=== PATIENT | male | born 2005 | race Two or more races ===

== ENCOUNTER 2024-10-06 19:03 | Emergency (ER) | payer MEDICAID, SELFPAY ==
[2024-10-06] VITALS (9 sets, daily range): BP systolic 122–162; BP diastolic 74–114; PULSE 53–96; RESP 15–20; TEMP 36.7–36.9; O2SAT 92–100; BMI 23.6
--- NOTE | 2024-10-06 19:09 | EKG_ITS ---
[facility] Test Date: 2024-10-06 Pat Name: RAE JACINTO Department: Room: - Gender: Male Junior Architect: : 2005 Requested By: Jaimie Schaefer Order Number: [id number] Reading MD: Jaimie Schaefer Measurements Intervals [place] Rate: 79 P: 63 VA: 150 QRS: 38 QRSD: 110 T: 57 QT: 365 QTc: 420 Interpretive Statements SINUS RHYTHM EARLY REPOLARIZATION [ST ELEVATION WITH NORMALLY INFLECTED T WAVE] No previous ECG available for comparison /store/S0/[id number]/ecg/[id number].pdf
--- NOTE | 2024-10-06 19:13 | PD.EDOVER ---
ED Overdose RME/HPI General Chief Complaint: Overdose Stated Complaint: OD Time Seen by Provider: 10/06/24 19:05 Arrival date/time: 10/06/24 19:03 RME / HPI RME / HPI Narrative: 19-year-old male patient with significant history of suicidal ideation in the past, schizophrenia, was brought in by EMS for evaluation regarding overdose on medication for suicidal attempt. Apparently patient was having an argument with her girlfriend, broke up with her girlfriend, and patient decided to hurt himself by drinking a bottle of ibuprofen, a bottle of aspirin, and Flagyl 12 tablets 500 mg. Incident happened during the daylight patient does not really remember what time. When the parents arrived, patient was noted to be less responsive and was vomiting. Patient complained of epigastric pain. Patient attempted suicide in the past. Related Data Previous Rx's ?Medication ?Instructions ?Recorded ibuprofen 800 mg tablet 800 mg PO TID PRN pain #30 tabs 07/03/22 amoxicillin 875 mg-potassium 1 tab PO BID #14 tabs 02/22/23 clavulanate 125 mg tablet ibuprofen 600 mg tablet 600 mg PO QID PRN fever or pain 02/22/23 #30 tabs sodium chloride 0.65 % nasal spray 2 spray intranasal QID #88 mL 02/22/23 aerosol (Saline Nasal) sulfamethoxazole 800 1 tab PO BID #14 tabs 03/09/23 mg-trimethoprim 160 mg tablet (Bactrim DS) ibuprofen 600 mg tablet 600 mg PO TID PRN pain #30 tabs 06/19/23 ondansetron 4 mg disintegrating 4 mg PO Q8H PRN nausea and 06/19/23 tablet vomiting #15 tabs Allergies Allergy/AdvReac Type Severity Reaction Status Date / Time codeine Allergy Mild Rash Verified 05/27/23 11:16 Review of Systems Review of Systems Narrative Review of Systems: Review of system reviewed and within normal limits except mentioned in HPI ED Exam Narrative Physical exam: VITAL SIGNS: Reviewed. GENERAL APPEARANCE: Alert and drowsy, follows commands, no acute distress, HEAD AND FACE: Non-traumatic. ENT: PERRL, pink conjunctivitis, eyelid no trauma, Mucous membrane moist. NECK: Supple, nontender, no nuchal rigidity. CHEST: No tenderness, no crepitus, no paradoxical movement, no retractions. LUNGS: Clear, well ventilated, symmetric, no rales, no wheezing, no ronchi, no stridor, good breath sounds bilaterally. HEART: Regular rate, regular rhythm, no murmur, no gallops. ABDOMEN: Soft, positive bowel sounds, nondistended, no guarding, epigastric tenderness, no rebound, no masses, RECTAL: Deferred. GENITAL: Deferred. NEUROLOGICAL: Gross motor function intact sensory function intact, Appropriate for age. MUSCULOSKELETAL: low back nontender, full range of motion. EXTREMITIES: Nontender, full range of motion. SKIN: Color pink, dry, no rash, no lacerations, no abrasions, no contusions. LYMPHATICS: Deferred. Course Quality Measures none Orders Category Date Time Status 179 [179 Psychiatric Hold] NOW Care 10/06/24 19:15 Ordered EKG (ED ONLY) *Do not use* NOW Care 10/06/24 19:11 Completed EKG (ED Only) Stat Exams 10/06/24 19:09 Draft ABG [Arterial Blood Gas] Stat Lab 10/06/24 20:53 Completed Acetaminophen Stat Lab 10/06/24 19:27 Completed Acetaminophen Stat Lab 10/06/24 21:18 Completed Alcohol, Blood Medical Stat Lab 10/06/24 19:27 Completed CBC Stat Lab 10/06/24 19:27 Completed CMP [Comprehensive Metabolic Panel] Stat Lab 10/06/24 19:27 Completed Drug Screen,Urine Stat Lab 10/06/24 21:27 Completed Salicylate Stat Lab 10/06/24 19:27 Completed Salicylate Stat Lab 10/06/24 21:18 Completed Urinalysis Stat Lab 10/06/24 21:27 Completed Ondansetron Inj [Zofran Inj] Med 10/06/24 19:11 Discontinued 4 mg IV X1 ONE Pantoprazole Inj [Protonix Inj] Med 10/06/24 19:12 Discontinued 40 mg IV X1 ONE Sodium Chloride 0.9% 1000 ml [Ns] 1,000 ml Med 10/06/24 19:11 Discontinued IV 999 mls/hr Sodium Chloride 0.9% 1000 ml [Ns] 1,000 ml Med 10/06/24 20:37 Discontinued IV 999 mls/hr Vital Signs Vital signs: Vital Signs Temperature 98.4 F 10/06/24 19:26 Pulse Rate 76 10/06/24 19:26 Respiratory Rate 20 10/06/24 19:26 Blood Pressure 162/114 H 10/06/24 19:26 Pulse Oximetry (%) 97 10/06/24 19:26 Oxygen Delivery Method Room Air 10/06/24 19:26 Overdose MDM Narrative MDM Narrative:: 19-year-old male patient with significant history of suicidal ideation in the past, schizophrenia, was brought in by EMS for evaluation regarding overdose on medication for suicidal attempt. Apparently patient was having an argument with her girlfriend, broke up with her girlfriend, and patient decided to hurt himself by drinking a bottle of ibuprofen, a bottle of aspirin, and Flagyl 12 tablets 500 mg. Incident happened during the daylight patient does not really remember what time. When the parents arrived, patient was noted to be less responsive and was vomiting. Patient complained of epigastric pain. Patient attempted suicide in the past. Patient salicylate all came back normal x 2 about 2 hours apart CBC came back unremarkable. Patient's ABG also came back normal urinalysis positive for cocaine and marijuana Patient was given IV fluids for hydration Zofran also. Was given Care transferred to Dr. Michele at 11 PM for final disposition. Patient data External records reviewed:: None Clinical information provided by:: patient Social determinants that could affect healthcare access:: mental health Patient has the following chronic illnesses:: Schizophrenia How is presenting disease/condition affected by chronic disease/condition?: exacerbated by Evaluation data The following diagnostics were reviewed and interpreted by me:: lab results, radiology exam(s) and EKG tracing(s) Lab and/or radiology exams considered but not ordered:: None Interpretation Summary: EKG showed sinus rhythm, ventricular rate 79 bpm, per interval 150 MS, no ST segment elevation depression noted.Patient salicylate all came back normal x 2 about 2 hours apart CBC came back unremarkable. Patient's ABG also came back normal urinalysis positive for cocaine and marijuana Medications / Prescriptions Medications or Prescriptions considered but not ordered:: None Medication administrations:: Medication Administration History Discontinued Medications Sodium Chloride (Ns) 1,000 mls @ 999 mls/hr IV .Q1H1M ONE Stop: 10/06/24 20:11 Last Infusion: 10/06/24 20:26 Dose: Infused Documented By: Admin: 10/06/24 19:21 Dose: 999 mls/hr Documented By: GHANSHYAM Sodium Chloride (Ns) 1,000 mls @ 999 mls/hr IV .Q1H1M ONE Stop: 10/06/24 21:37 Last Infusion: 10/06/24 21:40 Dose: Infused Documented By: Admin: 10/06/24 20:38 Dose: 999 mls/hr Documented By: GHANSHYAM Ondansetron HCl (Ondansetron Inj 2 Mg/Ml Inj 2 Ml) 4 mg IV X1 ONE; Protocol Stop: 10/06/24 19:12 Last Admin: 10/06/24 19:23 Dose: 4 mg Documented By: GHANSHYAM Pantoprazole Sodium (Pantoprazole Inj 40 Mg Vial) 40 mg IV X1 ONE Stop: 10/06/24 19:13 Last Admin: 10/06/24 19:23 Dose: 40 mg Documented By: GHANSHYAM None Consultations Consultation(s) initiated? (list below): No Diagnosis Overdose Differential Diagnosis: cocaine intoxication, drug overdose and other (Suicidal attempts) Most likely diagnosis given after review of the tests above:: Suicidal attempt, drug overdose Admission Indicated Admission indicated?: not indicated (Pending final disposition) Admission Request Was there a request for admission?: No Disposition Plan Disposition Plan: other (specify) Discharge Plan Prescriptions/Referrals Prescriptions/Med Rec: No Action ibuprofen 800 mg tablet 800 mg PO TID PRN (Reason: pain) Qty: 30 0RF amoxicillin-pot clavulanate 875-125 mg tablet 1 tab PO BID Qty: 14 0RF Saline Nasal 0.65 % aerosol,spray 2 spray intranasal QID Qty: 88 0RF ibuprofen 600 mg tablet 600 mg PO QID PRN (Reason: fever or pain) Qty: 30 0RF sulfamethoxazole-trimethoprim [Bactrim DS] 800-160 mg tablet 1 tab PO BID Qty: 14 0RF ibuprofen 600 mg tablet 600 mg PO TID PRN (Reason: pain) Qty: 30 0RF ondansetron 4 mg tablet,disintegrating 4 mg PO Q8H PRN (Reason: nausea and vomiting) Qty: 15 0RF Referrals: No Primary/Family,Physician [Primary Care Provider] - In 1 week Problem List Clinical Impression: Attempted suicide Patient/Caregiver Discharge Instructions Print Language: Nigerien
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
[2024-10-06] MEDS: SODIUM CHLORIDE 0.9% 1000 ML 1,000 ML 999 ML IV ×2 (19:21→20:38)
[2024-10-06] MEDS: PANTOPRAZOLE INJ 40 MG VIAL IV (19:23)
[2024-10-06] MEDS: ONDANSETRON INJ 2 MG/ML INJ 2 ML 4 MG IV (19:23)
--- NOTE | 2024-10-06 19:27 | PC.NURSE ---
[place] [facility] at bedside talking to Pt at this time
[2024-10-06 19:40] LABS: Basophils # (Auto) 0.1 Thou/mm3 (0.0-0.2); Basophils % (Auto) 0 % (0-2.5); Eosinophils # (Auto) 0.2 Thou/mm3 (0.0-0.5); Eosinophils % (Auto) 2 % (0-10); Hematocrit 46.7 % (41.0-53.0); Hemoglobin 16.7 g/dL (13.5-16.0); Immature Granulocytes % (Auto) 0 % (0-0); Immature Granulocytes Auto 0.03 Thou/mm3 (0.00-0.00); Lymphocytes # (Auto) 1.7 Thou/mm3 (1.0-4.8); Lymphocytes % (Auto) 14 % (10-50); Mean Corpuscular HGB Conc 35.8 g/dl (31.0-37.0); Mean Corpuscular Hemoglobin 30.4 pg (25.0-35.0); Mean Corpuscular Volume 85 fL (80-100); Monocytes # (Auto) 0.9 Thou/mm3 (0.0-0.8); Monocytes % (Auto) 7 % (0-12); Neutrophils % (Auto) 76 % (37-80); Nucleated Red Blood Cell % 0 /100 WBC (0); Platelet Count 239 Thou/mm3 (140-440); RDW Standard Deviation 36.7 fL (35.1-43.9); White Blood Count 11.9 Thou/mm3 (4.5-11.0)
--- NOTE | 2024-10-06 19:46 | PC.NURSE ---
contacted Poison control Spoke with Sharif at poison control who recommended to monitor the Pt ASA level Q2hr to see if is trending down,if the ASA level is above 30, we are to start sodium bicarbonate, and it the ASA level is above 90, we are to contact green chain off bearer to start dialysis. Also we are to monitor a chem panel Q4hr. JHOAN Schaefer made aware.
--- NOTE | 2024-10-06 19:46 | PC.NURSE ---
Addendum entered by Pat Crowell RN 10/07/24 07:11: wrong person Original Note: contacted Poison control Spoke with Sharif at poison control who recommended to monitor the Pt ASA level Q2hr to see if is trending down,if the ASA level is above 30, we are to start sodium bicarbonate, and it the ASA level is above 90, we are to contact elementary assistant teacher to start dialysis. Also we are to monitor a chem panel Q4hr. JHOAN Schaefer made aware.
[2024-10-06 20:02] LABS: Acetaminophen 24.4 mcg/mL (10.0-20.0); Alanine Aminotransferase 17 U/L (10-49); Albumin, Serum 5.6 gm/dL (3.5-5.0); Albumin/Globulin Ratio 2.1 (1.2-2.2); Alcohol, Blood Medical < 3.0 mg/dL (0-10.0); Alkaline Phosphatase 84 U/L (46-116); Anion Gap 12 (7-16); Aspartate Amino Transferase 25 U/L (0-34); BUN/Creatinine Ratio 15 Ratio (12-20); Bilirubin,Total 0.7 mg/dL (0.3-1.2); Blood Urea Nitrogen 16 mg/dL (9-23); Carbon Dioxide 23.4 mMol/L (20.0-31.0); Chloride 102 mMol/L (98-107); Creatinine (Component) 1.1 mg/dL (0.6-1.3); Estimated Creatinine Clearance 107.1 mL/min (>60); Globulin 2.7 gm/dL (2.3-3.5); Glucose 121 mg/dL (74-106); Osmolality,Calculated 276 (275-295); Potassium 3.7 mMol/L (3.4-5.1); Salicylate < 3.0 mg/dL; Sodium 137 mMol/L (136-145); Total Protein 8.3 gm/dL (5.7-8.2); eGFR > 60 See Note
[2024-10-06 20:59] LABS: Allen Test Performed/OK; Base Excess -2 (-3-3); HCO3 21 mEq/L (20-26); Inspired Oxygen, FIO2 21 %; O2 Saturation 99 % (91-98); PCO2 30 mmHg (32.0-48.0); PO2 103 mmHg (83-108); Puncture Site Left Radial; pH, Arterial 7.45 (7.35-7.45)
[2024-10-06 21:44] LABS: Collection Type, Urine Clean Catch
[2024-10-06 21:46] LABS: Acetaminophen 17.6 mcg/mL (10.0-20.0); Salicylate < 3.0 mg/dL
[2024-10-06 21:47] LABS: Bilirubin,Urine Negative (Negative); Blood,Urine Negative (Negative); Clarity,Urine Clear (Clear/Hazy); Color,Urine Yellow (Lt Yel-Yel); Glucose, Urine Negative (Negative); Ketones,Urine 2+ (Negative); Leukocyte Esterase,Urine Positive (Negative); Nitrite,Urine Negative (Negative); PH,Urine 6.5 (5.0-7.0); Protein,Urine Trace (Neg - Trace); RBC,Urine 3 /hpf (0-3); Specific Gravity,Urine 1.031 (1.001-1.035); Squamous Epithelial Cell,Urine < 1 /hpf (0-5); Urobilinogen,Urine Negative mg/dL (0.0-1.0); WBC,Urine 30 /hpf (0-5)
[2024-10-06 22:57] LABS: Amphetamine/Methamp Scrn,U Negative (Negative); Barbiturate Screen,Urine Negative (Negative); Benzodiazepines Screen,Urine Negative (Negative); Benzoylecgonine Screen, Ur Positive (Negative); Fentanyl Screen,Urine Negative (Negative); Opiate Screen,Urine Negative (Negative); THC Screen,Urine Positive (Negative)
--- NOTE | 2024-10-06 23:16 | PD.EDADDENDU ---
Emergency Room Addendum <Daisy Rivera - Last Filed: 10/07/24 03:46> Addendum Narrative: 2300: Care assumed from Jaimie Schaefer NP. Past medical, surgical, social and family history reviewed. Vitals and home medications reviewed. Results and treatment plan discussed. I will assume the care of the patient at this time. Please refer to the emergency department record for history and examination. OBSERVATION NOTE: The patient was placed in ED observation care at 10/06/24 at 2300 hours. The patient was placed in ED observation care because of pending crisis evaluation. The patients past medical history, social history, and family history were reviewed. The plan of care will include serial examinations. 2345: Patient is a 19yo male who came in to the ED for a possible overdose ~1200. Patient states he took multiple pills of Motrin, a blue pill and an unknown antibiotic. Patient reports excessive nausea and vomiting. He does have a history of schizophrenia and SI in the past. Initial labs show: UDS is positive for cocaine and marijuana, UA shows 2+ ketones; Anion gap is normal at 12; pCO2 is 30; Acetaminophen level is 24.4. Will repeat ABG, CMP, and UA. 2351: Endorsed by the nurse that poison control called back, stating to repeat the patient's tylenol level and LFTs, and if the tylenol level was below 10, the patient is safe and medically cleared. I called them back, stating I disagreed with them and when asked about their reasonings for their recommendations, they were unable to provide me with an answer. 0005: I spoke with the patient's mom, who states the patient ingested the pills around 1100. Patient is currently below the treatment line for the Tylenol level. Initial EKG done at 1920 shows NSR, rate of 79, normal axis, no ectopy, no acute ischemia, QRS: 110, QTc: 400, according to my interpretation. Repeat EKG done at 0018 shows sinus bradycardia, rate of 59, normal axis, no ectopy, no acute ischemia, QRS: 114. QTc: 433, according to my interpretation. 0047: Spoke with the patient and his mom, who state the patient ingested a full bottle of Flagyl, an unknown amount of Penicillin, a blue pills , and 10-11 big red pills . 0343: Repeat labs show no elevated anion gap. He does have a UTI. Patient is medically clear for crisis evaluation. 0600: Care signed out to the next oncoming provider. Past medical, surgical, social and family history reviewed. Vitals and home medications reviewed. Results and treatment plan discussed. They will assume the care of the patient at this time and will follow the patient, pending crisis evaluation in the morning. At this time, observation has ended. <Chinmay Michele MD - Last Filed: 10/07/24 06:21> Addendum Narrative: 2300: Care assumed from Jaimie Schaefer NP. Past medical, surgical, social and family history reviewed. Vitals and home medications reviewed. Results and treatment plan discussed. I will assume the care of the patient at this time. Please refer to the emergency department record for history and examination. OBSERVATION NOTE: The patient was placed in ED observation care at 10/06/24 at 2300 hours. The patient was placed in ED observation care because of pending crisis evaluation. The patients past medical history, social history, and family history were reviewed. The plan of care will include serial examinations. 2345: Patient is a 19yo male who came in to the ED for a possible overdose ~1200. Patient states he took multiple pills of Motrin, a blue pill and an unknown antibiotic. Patient reports excessive nausea and vomiting. He does have a history of schizophrenia and SI in the past. Initial labs show: UDS is positive for cocaine and marijuana, UA shows 2+ ketones; Anion gap is normal at 12; pCO2 is 30; Acetaminophen level is 24.4. Will repeat ABG, CMP, and UA. 2351: Endorsed by the nurse that poison control called back, stating to repeat the patient's tylenol level and LFTs, and if the tylenol level was below 10, the patient is safe and medically cleared. I called them back, stating I disagreed with them and when asked about their reasonings for their recommendations, they were unable to provide me with an answer. 0005: I spoke with the patient's mom, who states the patient ingested the pills around 1100. Patient is currently below the treatment line for the Tylenol level. Initial EKG done at 1920 shows NSR, rate of 79, normal axis, no ectopy, no acute ischemia, QRS: 110, QTc: 400, according to my interpretation. Repeat EKG done at 0018 shows sinus bradycardia, rate of 59, normal axis, no ectopy, no acute ischemia, QRS: 114. QTc: 433, according to my interpretation. 0047: Spoke with the patient and his mom, who state the patient ingested a full bottle of Flagyl, an unknown amount of Penicillin, a blue pills , and 10-11 big red pills . 0343: Repeat labs show no elevated anion gap. He does have a UTI. Patient is medically clear for crisis evaluation. 0600: Care of the patient turned over to Dr. Ramos at 6 AM pending evaluation by the crisis team. Dr. Obregon and I discussed the patient's case in detail. Past medical, surgical, social and family history reviewed. Vitals and home medications reviewed. Results and treatment plan discussed. They will assume the care of the patient at this time and will follow the patient, pending crisis evaluation in the morning. At this time, observation has ended.
--- NOTE | 2024-10-06 23:35 | PC.NURSE ---
Got a called from poison control and i spoke to Lora newberry, who was given update labs on this Pt. Lora, wants repeat CMP, liver enzymes, and acetaminophen levels. Furthermore, they reports that he want to see the acetaminophen less than 10mcg/mL in order to clear the Pt, but if the acetaminophen stay above 10mcg/mL, we will need to start treatment for the Pt. Dr. Michele made aware, and want to talk to lora. call transfer to Dr. michele
[2024-10-07] VITALS: BP 127/75; PULSE 56; RESP 19; TEMP 36.6; O2SAT 99
--- NOTE | 2024-10-07 00:08 | EKG_ITS ---
[facility] Test Date: 2024-10-07 Pat Name: RAE JACINTO Department: Room: - Gender: Male Musical Engineer: : 2005 Requested By: Chinmay Mejias Order Number: [id number] Reading MD: Chinmay Mejias Measurements Intervals [place] Rate: 59 P: 34 OK: 144 QRS: 27 QRSD: 114 T: 50 QT: 434 QTc: 432 Interpretive Statements SINUS BRADYCARDIA MODERATE INTRAVENTRICULAR CONDUCTION DELAY [110+ ms QRS DURATION] ST ELEVATION CONSISTENT WITH INJURY, PERICARDITIS, OR EARLY REPOLARIZATION [ST ELEVATION W/O NORMALLY INFLECTED T WAVE] Compared to ECG 10/06/2024 19:20:30 Intraventricular conduction delay now present ST (T wave) deviation now present Sinus rhythm no longer present /store/S0/[id number]/ecg/[id number].pdf
[2024-10-07 00:28] LABS: Lactate (Lactic Acid) 0.5 mMol/L (0.4-2.0)
[2024-10-07 00:35] LABS: Beta Hydroxybutyrate 1.6 mmol/L (<0.6)
[2024-10-07] MEDS: cefTRIAXone/D5w 1gm IV premix 50 ML IV (00:39)
[2024-10-07 00:56] LABS: Base Excess -3 (-3-3); HCO3 22 mEq/L (20-26); Inspired Oxygen, FIO2 21 %; O2 Saturation 99 % (91-98); PCO2 36 mmHg (32.0-48.0); PO2 124 mmHg (83-108); pH, Arterial 7.39 (7.35-7.45)
[2024-10-07 01:00] LABS: Alanine Aminotransferase 18 U/L (10-49); Albumin, Serum 4.7 gm/dL (3.5-5.0); Albumin/Globulin Ratio 2.2 (1.2-2.2); Alkaline Phosphatase 74 U/L (46-116); Anion Gap 10 (7-16); Aspartate Amino Transferase 22 U/L (0-34); BUN/Creatinine Ratio 14 Ratio (12-20); Bilirubin,Total 0.7 mg/dL (0.3-1.2); Blood Urea Nitrogen 14 mg/dL (9-23); Calcium 9.6 mg/dL (8.3-10.6); Calcium (Corrected) 9.6 mg/dL (8.5-10.1); Chloride 107 mMol/L (98-107); Estimated Creatinine Clearance 117.8 mL/min (>60); Globulin 2.1 gm/dL (2.3-3.5); Glucose 108 mg/dL (74-106); Osmolality,Calculated 279 (275-295); Potassium 3.8 mMol/L (3.4-5.1); Sodium 139 mMol/L (136-145); Total Protein 6.8 gm/dL (5.7-8.2); eGFR > 60 See Note
[2024-10-07 01:02] LABS: Allen Test Performed/OK; Puncture Site Left Radial
[2024-10-07 01:09] VITALS: BP 143/83; PULSE 62; RESP 20; TEMP 36.3; O2SAT 94
[2024-10-07 03:11] VITALS: BP 149/86; PULSE 86; RESP 18; TEMP 36.8; O2SAT 98
--- NOTE | 2024-10-07 05:54 | EDNOTE_ITS ---
Emergency Room Addendum <Yordy Ramos MD - Last Filed: 10/07/24 05:54> Addendum Narrative: Care Transitioned from Dr. Michele <Evangelinastu Gaviria - Last Filed: 10/07/24 11:05> Addendum Narrative: 0600: Care assumed from Dr. Michele, the previous shift emergency physician. Past medical, surgical, social and family history reviewed. Vitals and home medications reviewed. I will assume the care of the patient at this time, pending mental health evaluation. Please refer to the emergency department record for history and examination from initial visit.? EMS notes reviewed by me. Nursing notes reviewed by me. Vital signs reviewed by me. [place] medical records reviewed by me. Patient had been evaluated here for anxiety and depression before. 0820: Notified by our ASW that patient will be placed on a 5150 hold. The patient was placed in ED OBSERVATION CARE at this time, pending placement to [facility] facility. While in ED observation the pt will have access to water, food, and personal hygiene. If the pt takes home medication(s), they will be continued in ED observation. 0945: Patient has been accepted by Dr. Farooq at [facility]. EMS P/U scheduled at 11:00 am. 1058: EMS here to txfer patient. OBSERVATION CARE ended at this time. Patient was txfered in stable condition.
[2024-10-07 06:07] VITALS: BP 154/94; PULSE 71; RESP 17; TEMP 36.9; O2SAT 98
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
--- NOTE | 2024-10-07 08:41 | PC.CC ---
Patient was provided with advisement of 5150-Hold for Danger to Self. newspaper reporter Sara, Dr. Obregon, and MARIE Puente made aware of discharge plan.
[2024-10-07 08:51] VITALS: BP 147/96; PULSE 82; RESP 19; TEMP 36.9; O2SAT 98
--- NOTE | 2024-10-07 09:59 | PC.NURSE ---
[facility] (ATUL) INFORMED THE PT IS ACCEPTED VIA [facility]. THEY CANT ACCEPT HIM ADRI TO UNIT 3. PROVIDER, CHARGE, AND SS MADE AWARE.
--- NOTE | 2024-10-07 10:03 | PC.CC ---
Patient was accepted to [facility], Dr. Farooq, [address]. ASW provided patient with accepting facility. Transportation is being arranged. ceramic products sales engineer, Dr. Obregon, and MARIE Puente provided with update of accepting facility.
[2024-10-07 10:10] VITALS: BP 131/87; PULSE 57; RESP 15; TEMP 37.1; O2SAT 98
== END 2024-10-07 11:00 ==
PROVIDERS: Emergency Medicine; Nurse Practitioner Family; Emergency Provider Emergency Medicine
DX: T14.91XA Suicide attempt, initial encounter (principal); T39.312A Poisoning by propionic acid derivatives, intentional self-harm, initial encounter; T39.012A Poisoning by aspirin, intentional self-harm, initial encounter; T37.3X2A Poisoning by other antiprotozoal drugs, intentional self-harm, initial encounter; R11.10 Vomiting, unspecified; R10.13 Epigastric pain; R00.1 Bradycardia, unspecified; I45.89 Other specified conduction disorders; F20.9 Schizophrenia, unspecified; F15.90 Other stimulant use, unspecified, uncomplicated; Z75.1 Person awaiting admission to adequate facility elsewhere
CPT/HCPCS: 36415; 36600; 80053; 80307; 80320; 80329; 81001; 82010; 82803; 83605; 85025; 90839; 93005; 96127; 96361; 96365; 96375; 99285; J0696; J2405; J2470; J7030; G0480